=== PATIENT | male | born 1945 | race Caucasian/White ===

== ENCOUNTER 2016-08-07 10:38 | Emergency (ER) | payer MEDICARE, BC ==
[2016-08-07] MEDS ORDERED: Aspirin Low Dose CHEW TAB* 81 MG PO ONE (10:44)
--- NOTE | 2016-08-07 11:53 | RAD ---
INDICATION: Chest pain COMPARISON: September 10, 2013 TECHNIQUE: An AP portable view obtained at 1125 hours is submitted. FINDINGS: Bones/Soft Tissues: There are no acute bony findings. Cardiomediastinal: The cardiomediastinal silhouette is normal. Lungs: There are no infiltrates. Pleura: There are no pleural effusions. Other: None IMPRESSION: NO ACTIVE DISEASE.
[2016-08-07] MEDS ORDERED: Ketorolac INJ* 30 MG/ML 1 ML VIAL IV ONE (13:23)
[2016-08-07 14:07] LABS: Hematocrit 40 % (42-52); Hemoglobin 13.5 g/dl (14.0-18.0); Mean Corpuscular HGB Conc 34 g/dl (31-36); Mean Corpuscular Hemoglobin 31 pg (27-31); Mean Corpuscular Volume 91 fL (80-94); Mean Platelet Volume 8 um3 (7.4-10.4); Red Blood Count 4.35 10^6/ul (4.0-5.4); Red Cell Distribution Width 13 % (10.5-15); White Blood Count 8.3 10^3/ul (3.5-10.8)
[2016-08-07 14:19] LABS: Albumin 3.9 g/dL (3.2-5.2); BUN/Creatinine Ratio 10.6 (8-20); Calcium 8.8 mg/dL (8.6-10.3); EGFR African American 82.5 (>60); EGFR Non-African American 64.2 (>60); Potassium 3.8 mmol/L (3.5-5.0); Total Bilirubin 0.6 mg/dL (0.2-1.0); Total Protein 6.9 g/dL (6.4-8.9)
[2016-08-07 14:20] LABS: Troponin I 0.02 ng/mL (<0.04)
--- NOTE | 2016-08-07 14:50 | RAD ---
INDICATION: Chest pain. COMPARISON: Comparison is made with prior chest x-ray studies from September 10, 2013 and August 07, 2016. TECHNIQUE: A single lateral view of the chest was obtained. FINDINGS: The lungs appear clear. No pleural effusion is seen. IMPRESSION: No evidence for acute finding.
[2016-08-07] MEDS ORDERED: Iohexol 350* (CONTRAST) 500 ML MDV IV ONE (14:57)
--- NOTE | 2016-08-07 16:28 | RAD ---
INDICATION: Chest pain. COMPARISON: Correlation is made with a prior chest x-ray studies from August 07, 2016. TECHNIQUE: A CT angiogram of the chest was performed with intravenous following intravenous injection of 83 ml of Omnipaque 350 nonionic contrast. Contiguous axial sections were obtained from the lung apices through the lung bases. Images were reconstructed in the coronal and sagittal planes. FINDINGS: There is relatively homogeneous opacification of the pulmonary arteries. No intraluminal filling defect or pulmonary embolism is seen. The heart is within normal limits in size. No pericardial effusion is present. The thoracic aorta is normal in caliber. No significant enlarged mediastinal or hilar lymph nodes are seen. There is a moderate size hiatal hernia present. The patient is status post gastric bypass surgery. No acute findings are seen in the upper abdomen. There is mild dependent bilateral lower lobe subsegmental atelectasis. The lungs are otherwise clear. No pleural effusion or pneumothorax is seen. No significant focal osseous abnormality is seen. IMPRESSION: 1. NO EVIDENCE FOR PULMONARY EMBOLISM. 2. MODERATE SIZE HIATAL HERNIA.
[2016-08-07 16:57] VITALS: BP 172/82
--- NOTE | 2016-08-07 19:04 | ED ---
Efren Love Adam, scribed for Luis M Nicholson MD on 08/07/16 at 1235 . HPI Chest Pain - HPI Summary HPI Summary: Pt is a 70 year old male presenting with chest pain that set on at 02:00 this morning. He states that at 02:00 he felt a crunch in the left side of his back as he was lifting up his left arm. He says it felt similar to when he has cracked ribs in the past. After the crunching sensation, he began feeling pain around his left shoulder blade and also in the center of his chest. The quality of the pain is "like a toothache" and it has been constant since 02:00. He also c/o SOB and he states that deep breaths aggravate the pain. He denies abdominal pain. PMHx of rotator cuff work on the RUE, which is in a sling. - History of Current Complaint Chief Complaint: EDChestPainROMI Time Seen by Provider: 08/07/16 12:30 Hx Obtained From: Patient Onset/Duration: Started Hours Ago, Atraumatic, Still Present Timing: Constant, Lasting Hours Initial Severity: Moderate Current Severity: Moderate Pain Intensity: 6 Pain Scale Used: 0-10 Numeric Chest Pain Location: Mid Sternal Chest Pain Radiates: Yes Chest Pain Radiates To:: Back - Left Character: Dull/Aching Aggravating Factor(s): Deep Breaths Alleviating Factor(s): Nothing Associated Signs and Symptoms: Positive: Shortness of Breath - Allergy/Home Medications Allergies/Adverse Reactions: Allergies Allergy/AdvReac Type Severity Reaction Status Date / Time No Known Allergies Allergy Verified 07/06/16 07:20 PMH/Surg Hx/FS Hx/Imm Hx Endocrine/Hematology History: Reports: Hx Thyroid Disease - Hx OF HYPER, WAS ON MEDS, NO CURRENT MEDS Denies: Hx Diabetes - HX diabetes prior to weight loss, s/p gastric bypass 2002 Cardiovascular History: Reports: Hx Hypertension - s/p systemic arterial hypertension per Dr. Diaz 09/13/12, Other Cardiovascular Problems/Disorders - near syncope/sob since 05/2012, no HTN after weight loss Denies: Hx Angina, Hx Coronary Artery Disease, Hx Hypercholesterolemia, Hx Myocardial Infarction, Hx Pacemaker/ICD, Hx Valvular Heart Disease Respiratory History: Reports: Other Respiratory Problems/Disorders - many prior rib fx's, including some from 2 yrs ago Denies: Hx Asthma, Hx Chronic Obstructive Pulmonary Disease (COPD) GI History: Reports: Hx Gastroesophageal Reflux Disease - Hx OF, [place] SINCE LOSING WT, Hx Hiatal Hernia, Other GI Disorders - s/p gastric bypass 02/2003 History: Denies: Hx Renal Disease Musculoskeletal History: Reports: Hx Arthritis - MANY JOINTS, Hx Back Problems - broken back in 1978 Sensory History: Reports: Hx Contacts or Glasses - GLASSES Denies: Hx Hearing Aid Opthamlomology History: Reports: Hx Contacts or Glasses - GLASSES Neurological History: Reports: Hx Spinal Cord Injury - 1978 broken back, Other Neuro Impairments/Disorders - Past 6 months complaint of dizziness, tremors hands/legs (10/23/12) Psychiatric History: Reports: Other Psychiatric Issues/Disorders - inpatient ETOH treatment 07/17 Denies: Hx Panic Disorder - Cancer History Cancer Type, Location and Year: 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 BILATERAL BREAST LUMPS REMOVED Hx Anesthesia Reactions: No Infectious Disease History: No Infectious Disease History: Denies: Traveled Outside the [place] in Last 30 Days - Family History Known Family History: Positive: Cardiac Disease - CAD, triple bypass - Social History Occupation: Disabled Lives: With Family - Alcohol Use: None Hx Substance Use: No Substance Use Type: Reports: None Hx Tobacco Use: Yes Smoking Status (MU): Former Smoker Amount Used/How Often: 2-3 PPD 30 YRS Have You Smoked in the Last Year: No Review of Systems Negative: Fever Positive: Chest Pain Positive: Shortness Of Breath Positive: Myalgia - Left back pain All Other Systems Reviewed And Are Negative: Yes Physical Exam Triage Information Reviewed: Yes Vital Signs On Initial Exam: Initial Vitals Temp Pulse Resp BP Pulse Ox 98.1 F 55 18 153/78 98 08/07/16 11:09 08/07/16 11:09 08/07/16 11:09 08/07/16 11:09 08/07/16 11:09 Vital Signs Reviewed: Yes Appearance: Positive: Well-Appearing, No Pain Distress Skin: Positive: Warm, Skin Color Reflects Adequate Perfusion, Dry Head/Face: Positive: Normal Head/Face Inspection Eyes: Positive: Normal ENT: Positive: Normal ENT inspection Neck: Positive: Supple, Nontender Respiratory/Lung Sounds: Positive: Clear to Auscultation, Breath Sounds Present Cardiovascular: Positive: RRR Abdomen Description: Positive: Nontender, Soft Bowel Sounds: Positive: Present Musculoskeletal: Positive: Normal Neurological: Positive: Normal Psychiatric: Positive: Normal, Affect/Mood Appropriate Diagnostics - Vital Signs Vital Signs Temp Pulse Resp BP Pulse Ox 08/07/16 11:31 98.3 F 53 16 149/90 98 08/07/16 11:09 98.1 F 55 18 153/78 98 - Laboratory Lab Results: Lab Results 08/07/16 08/07/16 08/07/16 Range/Units 13:52 13:52 13:52 WBC 8.3 (3.5-10.8) 10^3/ul RBC 4.35 (4.0-5.4) 10^6/ul Hgb 13.5 L (14.0-18.0) g/dl Hct 40 L (42-52) % MCV 91 (80-94) fL MCH 31 (27-31) pg MCHC 34 (31-36) g/dl RDW 13 (10.5-15) % Plt Count 199 (150-450) 10^3/ul MPV 8 (7.4-10.4) um3 Neut % (Auto) 64.1 (38-83) % Lymph % (Auto) 25.4 (25-47) % Hardee % (Auto) 7.4 (1-9) % Eos % (Auto) 2.4 (0-6) % Baso % (Auto) 0.7 (0-2) % Absolute Neuts (auto) 5.3 (1.5-7.7) 10^3/ul Absolute Lymphs (auto) 2.1 (1.0-4.8) 10^3/ul Absolute Monos (auto) 0.6 (0-0.8) 10^3/ul Absolute Eos (auto) 0.2 (0-0.6) 10^3/ul Absolute Basos (auto) 0.1 (0-0.2) 10^3/ul Absolute Nucleated RBC 0 10^3/ul Nucleated RBC % 0 D-Dimer, Quantitative (Less Than 230) ng/mL Sodium 136 (133-145) mmol/L Potassium 3.8 (3.5-5.0) mmol/L Chloride 106 (101-111) mmol/L Carbon Dioxide 23 (22-32) mmol/L Anion Gap 7 (2-11) mmol/L BUN 12 (6-24) mg/dL Creatinine 1.13 (0.67-1.17) mg/dL Est GFR ( Amer) 82.5 (>60) Est GFR (Non-Af Amer) 64.2 (>60) BUN/Creatinine Ratio 10.6 (8-20) Glucose 85 (70-100) mg/dL Lactic Acid 0.8 (0.5-2.0) mmol/L Calcium 8.8 (8.6-10.3) mg/dL Total Bilirubin 0.60 (0.2-1.0) mg/dL AST 16 (13-39) U/L ALT 8 (7-52) U/L Alkaline Phosphatase 54 (34-104) U/L Troponin I 0.02 (<0.04) ng/mL B-Natriuretic Peptide ( - 100) pg/mL Total Protein 6.9 (6.4-8.9) g/dL Albumin 3.9 (3.2-5.2) g/dL Globulin 3.0 (2-4) g/dL Albumin/Globulin Ratio 1.3 (1-3) 08/07/16 08/07/16 Range/Units 13:52 13:52 WBC (3.5-10.8) 10^3/ul RBC (4.0-5.4) 10^6/ul Hgb (14.0-18.0) g/dl Hct (42-52) % MCV (80-94) fL MCH (27-31) pg MCHC (31-36) g/dl RDW (10.5-15) % Plt Count (150-450) 10^3/ul MPV (7.4-10.4) um3 Neut % (Auto) (38-83) % Lymph % (Auto) (25-47) % Hardee % (Auto) (1-9) % Eos % (Auto) (0-6) % Baso % (Auto) (0-2) % Absolute Neuts (auto) (1.5-7.7) 10^3/ul Absolute Lymphs (auto) (1.0-4.8) 10^3/ul Absolute Monos (auto) (0-0.8) 10^3/ul Absolute Eos (auto) (0-0.6) 10^3/ul Absolute Basos (auto) (0-0.2) 10^3/ul Absolute Nucleated RBC 10^3/ul Nucleated RBC % D-Dimer, Quantitative 265 H (Less Than 230) ng/mL Sodium (133-145) mmol/L Potassium (3.5-5.0) mmol/L Chloride (101-111) mmol/L Carbon Dioxide (22-32) mmol/L Anion Gap (2-11) mmol/L BUN (6-24) mg/dL Creatinine (0.67-1.17) mg/dL Est GFR ( Amer) (>60) Est GFR (Non-Af Amer) (>60) BUN/Creatinine Ratio (8-20) Glucose (70-100) mg/dL Lactic Acid (0.5-2.0) mmol/L Calcium (8.6-10.3) mg/dL Total Bilirubin (0.2-1.0) mg/dL AST (13-39) U/L ALT (7-52) U/L Alkaline Phosphatase (34-104) U/L Troponin I (<0.04) ng/mL B-Natriuretic Peptide 78 ( - 100) pg/mL Total Protein (6.4-8.9) g/dL Albumin (3.2-5.2) g/dL Globulin (2-4) g/dL Albumin/Globulin Ratio (1-3) Result Diagrams: 08/07/16 13:52 08/07/16 13:52 Lab Statement: Any lab studies that have been ordered have been reviewed, and results considered in the medical decision making process. - Radiology CXR Radiology Interpretation Completed By: Radiologist - IMPRESSION: NO ACTIVE DISEASE. - CT CHEST/THORAX CTA CT Interpretation Completed By: Radiologist - IMPRESSION: 1. NO EVIDENCE FOR PULMONARY EMBOLISM. 2. MODERATE SIZE HIATAL HERNIA. - EKG 10:44 Cardiac Rate: Bradycardia - 53 BPM EKG Rhythm: Sinus Bradycardia - Additional Comments Diagnostic Additional Comments: Troponin I - 0.02 Chest Pain Course/Dx - Course Course Of Treatment: Mr. Cooley had the acute onset of chest and back pain while rolling over in bed during the wee hours of the night last night and it has been bothering him since. It does aggravate it some to take a deep breath but he has no other exacerbating or relieving factors. His W/U was negative here for labs and CXR including troponin. A CTA was also negative for dissection or PE. I think this is a radicular pain. There is no compression fx. - Diagnoses Provider Diagnoses: Dorsal radiculopathy Discharge - Discharge Plan Condition: Stable Disposition: HOME Prescriptions: Acetaminop/Codeine 30 MG TAB* [Tylenol/Codeine 30 MG TAB*] 1 tab PO Q6H PRN #20 tab MDD 4 PRN Reason: Pain Patient Education Materials: Lumbar Radiculopathy (ED) Referrals: Patty Richard MD [Primary Care Provider] - Additional Instructions: Follow up with Dr. Richard. The documentation as recorded by the Efren guevara Adam accurately reflects the service I personally performed and the decisions made by me, Luis M Nicholson MD.
== END 2016-08-07 18:10 | disposition home or self-care (01) ==
LOC: ED 10:38
DX: M54.14 Radiculopathy, thoracic region (principal); K44.9 Diaphragmatic hernia without obstruction or gangrene; R07.9 Chest pain, unspecified; R06.02 Shortness of breath; M54.9 Dorsalgia, unspecified
CPT/HCPCS: 36415; 71010; 71275; 80053; 83605; 83880; 84484; 85025; 85379; 93005; 96374; 99282; A9270-GY; J1885; Q9967

== ENCOUNTER 2017-03-07 05:58 | Inpatient (IN) | payer MEDICARE, BC ==
--- NOTE | 2017-02-20 20:54 | HP ---
PREOPERATIVE HISTORY AND PHYSICAL: DATE OF SURGERY: 03/07/17 ATTENDING SURGEON: Sendy Ryan MD.* (DICTATED BY MENA BEAN) PROCEDURE: Right total shoulder reverse. CHIEF COMPLAINT: Right shoulder pain. HISTORY OF PRESENT ILLNESS: Mr. Cooley is a 71-year-old male who presented to the clinic with right shoulder pain due to the rotator cuff tear and osteoarthritis. He has a history of right shoulder arthroscopy with extensive glenohumeral debridement with biceps tenotomy, subacromial decompression with acromioplasty, distal clavicle excision and rotator cuff repair double row with Dr. Ryan on 07/06/16. He is having continued pain in the shoulder. He has failed conservative measures and therefore, it was agreed to undergo right total shoulder reverse with Dr. Ryan on 03/07/17. PAST MEDICAL HISTORY: Anemia, skin cancer, hypertension resolved after he had the gastric bypass, diabetes resolved after he had the gastric bypass, gastric bypass and hyperthyroidism. PAST SURGICAL HISTORY: Gastric bypass in 2013, left shoulder surgery x2, right shoulder arthroscopy, breast lumpectomy, left knee meniscectomy, skin cancer removal. Denies prior complications with anesthesia. MEDICATIONS: 1. Tramadol 50 mg 1 tab by mouth every 4 hours as needed for pain. 2. Ibuprofen 800 mg 1 every 8 hours as needed for pain, take with food. 3. Aspirin 81 mg daily. 4. Vitamin B12, 250 mcg 2 to 3 drops daily. 6. Ibuprofen 600 mg take 1 by mouth every 6 hours as needed for pain. 7. Percocet 5/325 take 1 every 4 to 6 hours as needed for pain. 8. Colace 100 mg take 1 twice a day postoperatively. ALLERGIES: No known drug allergies. FAMILY HISTORY: Positive for diabetes, heart disease, Alzheimer's, thyroid disease and Parkinson's disease. Denies family history of DVT or PE. SOCIAL HISTORY: He lives with his spouse. He is retired. He denies tobacco use. He reports occasional alcohol consumption. He denies illegal drug use. REVIEW OF SYSTEMS: General: Denies fever, chills, night sweats. No known anesthesia problems. HEENT: Negative for headache, lightheadedness, or syncopal episodes. Integumentary: Negative for abrasions, lesions or open wounds. Cardiothoracic: As needed for chest pain, palpitations or edema. Positive for hypertension. GI: Negative for nausea, vomiting, diarrhea, constipation or GERD. : Negative for nocturia, history of UTIs, or kidney problems. Musculo-skeletal System: Positive for current complaint. Neuro: Negative for numbness, tingling, history of seizure, stroke, or epilepsy. Endocrine: Positive for diabetes and hyperthyroidism. Hematology: Negative for easy bruising, history of excessive bleeding, history of DVT or PE. Infectious Disease: Negative for history of MRSA, hepatitis C, or HIV. PHYSICAL EXAMINATION GENERAL: Well-developed, well-nourished 71-year-old male in no acute distress. Alert and oriented x3. Appropriate mood and affect. VITAL SIGNS: Height 55.5, weight 215. Pulse 77, blood pressure 128/74, respiratory rate 16, temperature 96.8. BMI 35.2. HEENT: Normocephalic, atraumatic. PERRLA. Throat clear. NECK: Supple. PULMONARY: Lungs clear to auscultation bilaterally. No wheezing, rhonchi, or rales. CARDIO: Regular rate and rhythm. S1 and S2. No murmurs, gallops, or rubs. No edema. ABDOMEN: Positive bowel sounds, soft, nontender. NEURO: Alert and oriented x3. Cranial nerves grossly intact. Sensation is intact to light touch. MUSCULOSKELETAL: Right upper extremity skin is intact well healed surgical incision. Anterior joint line tenderness. Forward flexion to 100, abduction is 65, external rotation is 30, and internal rotation is to posterior hip. +4/5 strength in all rotator cuff testing with pain. +2 radial pulse. Sensation is intact to light touch distally. STUDIES: MRI of the right shoulder revealed high-grade partial thickness tearing of the supraspinatus tendon. IMPRESSION: Right shoulder rotator cuff tear and arthritis. PLAN: The patient is scheduled to undergo a right total shoulder reverse with Dr. Ryan on 03/07/17. He will return to the office in 10 to 14 days for postoperative followup and suture removal. Percocet will be used for postop pain and management. MENA BEAN [id number]/[facility] #: [id number] [facility]ER[facility] CHILDREN'S HOSPITALRubén
[~2017-03-07 05:58] MED LIST: Buffered Lidocaine 0.9% SYRIN* 5 ML/SYR SYRINGE INTRADERM ONE; Buffered Lidocaine 0.9% SYRIN* 5 ML/SYR SYRINGE ONE; Famotidine IV* 10 MG/ML 2 ML (20 mg) ONE; Morphine INJ* 2 MG/ML 1 ML SYRINGE IV PRN; PROCHLORPERAZINE INJ 5 MG/ML 2 ML VIAL IV PRN; Scopolamine 1.5 mg* PATCH TRANSDERM PRN; ceFAZolin 2 GM PREMIX (*) 50 ML IVPB ONE; fentaNYL* 50 MCG/ML 2 ML VIAL (100 MCG VIAL) IV PRN; oxyCODONE/Acetamin 5/325 MG* TAB PO PRN
[2017-03-07] MEDS ORDERED: Famotidine IV* 10 MG/ML 2 ML (20 mg) IV ONE (06:00)
[2017-03-07] MEDS ORDERED: Midazolam* 1 MG/ML 5 ML VIAL (5 MG) ONE (07:06)
[2017-03-07] MEDS ORDERED: Atracurium* 10 MG/ML 10 ML VIAL ONE (07:06)
[2017-03-07] MEDS ORDERED: KETAMINE HCL* 50 MG/ML 10 ML VIAL ONE (07:06)
[2017-03-07] MEDS ORDERED: fentaNYL* 50 MCG/ML 2 ML VIAL (100 MCG VIAL) ONE ×3 (07:06→10:49)
[2017-03-07] MEDS ORDERED: Dexamethasone IV* 4 MG/ML 1 ML (4 MG) ONE (08:11)
[2017-03-07] MEDS ORDERED: Lidocaine 2% PF * 5 ML VIAL ONE (08:11)
[2017-03-07] MEDS ORDERED: Bupivacaine 0.25% SDV* 30 ML ONE (08:11)
[2017-03-07] MEDS ORDERED: Phenylephrine INJ* 10 MG/ML 1 ML VIAL (10 MG) ONE (08:11)
[2017-03-07] MEDS ORDERED: Propofol* 10 MG/ML 20 ML BTL IV PUSH ONE (08:11)
[2017-03-07] MEDS ORDERED: PROCHLORPERAZINE INJ 5 MG/ML 2 ML VIAL ONE (08:11)
[2017-03-07] MEDS ORDERED: Ondansetron INJ* 2 MG/ML VIAL ONE (08:11)
[2017-03-07] MEDS ORDERED: EPHEDrine (Pressors)* 50 MG/ML VIAL ONE (08:55)
[2017-03-07] MEDS ORDERED: HYDROmorphone* 1 MG/ML 1 ML SYR ONE ×2 (09:30→10:49)
[2017-03-07] MEDS ORDERED: Polyethylene Glycol 3350* 17 GM PACKET PO PRN (10:32)
[2017-03-07] MEDS ORDERED: oxyCODONE TAB* 5 MG TAB PO PRN (10:32)
[2017-03-07] MEDS ORDERED: diPHENhydraMINE IV* 50 MG/ML 1 ml VIAL (BENADRYL) IV PRN (10:32)
[2017-03-07] MEDS ORDERED: Bisacodyl SUPP* 10 MG SUPP PR PRN (10:32)
[2017-03-07] MEDS ORDERED: Ondansetron INJ* 2 MG/ML VIAL IV PRN (10:32)
[2017-03-07] MEDS ORDERED: oxyCODONE/Acetamin 5/325 MG* TAB PO PRN (10:32)
[2017-03-07] MEDS ORDERED: Magnesium Hydroxide LIQ* 30 ML UDC PO PRN (10:32)
[2017-03-07] MEDS ORDERED: Acetaminophen TAB* 325 MG PO PRN (10:32)
[2017-03-07] MEDS ORDERED: Morphine INJ* 2 MG/ML 1 ML SYRINGE IV PRN (10:32)
[2017-03-07] MEDS ORDERED: Temazepam CAP* 15 MG PO PRN (10:32)
[2017-03-07] MEDS: HYDROmorphone* 1 MG/ML 1 ML SYR IV PRN ×2 (10:51→11:15)
--- NOTE | 2017-03-07 11:28 | RAD ---
INDICATION: Postop total right shoulder replacement surgery. TECHNIQUE: 4 views of the right shoulder were obtained. FINDINGS: The patient is status post total right shoulder replacement surgery with a reversed polarity prosthesis. The bones and prostheses are in normal alignment. There is a surgical drain present IMPRESSION: STATUS POST TOTAL RIGHT SHOULDER REPLACEMENT SURGERY.
--- NOTE | 2017-03-07 14:59 | OP ---
DATE OF OPERATION: 03/07/17 - ROOM #346 DATE OF : 45 SURGEON: Sendy Ryan MD ASSISTANTS: MENA Ho, and MENA Cast. ANESTHESIOLOGIST: Dr. Bowen. ANESTHESIA: General and interscalene block. PRE-OP DIAGNOSES: Right shoulder rotator cuff tear with pseudoparalysis. POST-OP DIAGNOSES: Right shoulder rotator cuff tear with pseudoparalysis. OPERATIVE PROCEDURE: Right shoulder reverse shoulder arthroplasty and removal of foreign body x2. IMPLANTS: Tornier Aequalis reverse threaded base plate at 25 x 30 mm; centered glenosphere 36 mm; size 5B Aequalis Ascend Flex stem with a size 0 mm high offset reverse tray and 9 mm ultra high molecular weight polyethylene. INDICATIONS: Zachary Cooley is a 71-year-old male who underwent a previous rotator cuff repair with subpectoral biceps tenodesis. He did okay for a while then he had subsequent multiple falls that resulted in re-tear of the rotator cuff. After discussion of revision repair versus reverse shoulder arthroplasty , due to his comorbidities and the quality of the tissue there was a concern that he would not heal the tear; therefore, we discussed options for reverse shoulder arthroplasty. The patient refused injections and elected to proceed with reverse shoulder arthroplasty. Risk and benefits were discussed at length include, but not limited to bleeding infection, damage to nerves, vessels, surrounding structures, the wound nonhealing, persistent pain, need for further surgery, scarring, stiffness, persistent pain, fracture dislocation, risk of anesthesia, hematoma, incomplete relief of symptoms, need for further surgery. He elected to proceed. DESCRIPTION OF PROCEDURE: The patient was seen and examined in the preoperative area. The correct extremity was marked and consent was confirmed. The patient then underwent interscalene nerve block by the anesthesiologist in the preoperative area after which he was brought to the operating suite where he was placed in supine position on the operating table, he is then underwent general anesthesia and endotracheal intubation after which the patient was appropriately positioned in the lazy beach chair position. All bony prominences were padded. The right shoulder was then prepped and draped in the usual sterile fashion with chlorhexidine soap scrub and alcohol wipe and final prep with ChloraPrep. After an appropriate surgical pause indicating side, site, and procedure, administration of antibiotics, the deltopectoral incision was made sharply with a #15 blade. The soft tissues were carefully dissected. Hemostasis was obtained at all times using electrocautery device. The soft tissue was carefully dissected to expose cephalic vein, which was identified then retracted laterally with the deltoid, the pectoralis tendon was retracted medially. The soft tissue retractors were used to expose the anterior aspect of the shoulder. The bursa was removed, the conjoined tendon was identified and laterally the subscapular bursa was removed. The biceps was identified. The proximal 1 cm of the pec was released. He had already previously been tenodesed, so we did not need to do this again. The soft tissues were carried up all the way into the joint to expose the superior and inferior borders of the subscap. Subscap was then released in the subscap peel type fashion with gentle external rotation. Subscap was then tagged with the # 5 Ethibond suture for retraction. The visualized tear of the rotator tear cuff was then identified proximally; he did have tearing as well inferiorly. The sutures were identified. Part of the rotator cuff was also released. The head was then exposed and delivered through the wound with retractors appropriately placed. A sagittal saw was used to make a freehand cut. The starting awl was then used to find the center of the canal. The canal was then sized to about 5.6. At this point, the broaching began with the pedrito set to 20 degrees of retroversion. A size 5 broach was found to have an excellent fit with good metaphyseal fit. The excess bone was reamed, coplanar was used to remove any excess bone. The head protector was then placed into the shaft. The shoulder was then delivered back into the wound and the attention was directed to the glenoid. The Fukuda and then posterior retractor were used to expose the posterior aspect of the glenoid. Hohmann was placed proximally and the subscap adhesions ; the superior, middle, and inferior glenohumeral ligaments were then carefully released with care to protect the neurovascular bundle. The glenoid neck retractor was then used to expose the anterior aspect of the glenoid and the labrum was removed using electrocautery device, from the 12 o'clock to the 5 o' clock position. The inferior aspect of the labrum was then removed using a needle tip Bovie from 5 o'clock to 7 o'clock with care to retract sutures and to stay on bone to prevent any damage to the neurovascular structures. Once a full release to the labrum was done, the Mcdowell elevator was used to remove the excess cartilage from the glenoid. The guide pin was then used for a size 25 base plate and placed approximately 10 mm from the inferior border of the glenoid. This was then placed bicortically and used as a guide to help reaming of the glenoid, to remove all excess cartilage, and expose good bleeding bone. The 8 mm drill bit was then drilled to drill the center peg and then a 6.5 mm drill was used to drill the position for the threaded base plate. This was measured to be about 30 mm. The screw hole was then tapped in the appropriate baseplate. The final implant was then brought to the table and then secured with excellent purchase. 4 interlocking screws were placed, these were locking screws with excellent purchase. The wound was irrigated then the glenosphere was brought into the field. The glenosphere was then reduced and the set screw was secured and the attention was then directed to the humeral stem. The stem was checked to make sure that it had not loosened and it was gently impacted back to position. After various trials it was found that the high offset base plate with size 9 mm poly had the best fit with a good amount of shuck, reapproximation of the subscap as well as good range of motion; forward flexion to about 150 degrees, posterior extension to about 40 degrees, external rotation to about 35 degrees, abduction to 90 degrees. At this point, the final implants were obtained, were brought to the field. The trial humeral stem was removed. Three drill holes were replaced unicortically through the humerus with #5 Ethibond to reapproximate subscap repair. The final implant was assembled on the back table by the attending surgeon. This was then impacted en isabella into the shoulder with good purchase. The shoulder was then reduced and found to have symmetric range of motion. At this point, the wound was copiously irrigated with sterile saline. The subscap was then reapproximated using the previously placed #5 Ethibond sutures; it was passed in horizontal mattress configuration and tied down. The wound was irrigated again. A drain was then placed at this time. The wound was irrigated again. The deltopectoral interval was closed with #2 Ti-Cron sutures. The wound was closed in layers with 2-0 Vicryl and 3-0 Monocryl. Sterile dressings were applied. A Cryo/Cuff UltraSling and dressings were applied. He was awoken from anesthesia and transferred to PACU in stable condition. POSTOPERATIVE PLAN: He will be nonweightbearing. He will have no active range of motion, passive forward flexion, abduction to 90 degrees, external rotation to about 30 degrees as tolerated. He will be allowed active range of motion of his elbow, wrist and hand. The drain will likely come out postop day #1. He will be admitted for 24 hours of antibiotics, pain control. We will check his blood count in the morning. He will be on DVT prophylaxis while in house, would likely go home without any due to no personal or family history. Postop x -rays will be checked in the PACU. We will follow the patient in-house and he will follow up with me in the 10 to 14 days. [id number]/[facility] #: [id number] ERNESTO
[2017-03-07] MEDS: ceFAZolin 1 GM VIAL(*) 1 GM in NS 0.9% 50 ML* 50 ML IVPB SCH ×2 (15:14→23:17)
[2017-03-07] MEDS: oxyCODONE/Acetamin 5/325 MG* TAB PO PRN (19:36)
[2017-03-08] MEDS: oxyCODONE/Acetamin 5/325 MG* TAB PO PRN ×3 (00:04→10:49)
[2017-03-08 05:08] LABS: Hematocrit 32 % (42-52); Hemoglobin 11.1 g/dl (14.0-18.0)
[2017-03-08 05:21] LABS: BUN/Creatinine Ratio 11.5 (8-20); Calcium 8.2 mg/dL (8.6-10.3); EGFR African American 99.3 (>60); EGFR Non-African American 77.2 (>60); Potassium 3.6 mmol/L (3.5-5.0)
[2017-03-08] MEDS: ceFAZolin 1 GM VIAL(*) 1 GM in NS 0.9% 50 ML* 50 ML IVPB SCH (07:14)
[2017-03-08] MEDS ORDERED: Enoxaparin(*) 40 MG/0.4 ML SYR SUBCUT SCH (08:00)
[2017-03-08] MEDS ORDERED: Cyanocobalamin INJ * 1,000 MCG/ML VIAL 1 ML VIAL IM ONE (10:51)
--- NOTE | 2017-03-08 10:51 | PN ---
Progress Note - Progress Note Date of Service: 03/08/17 SOAP: Subjective: []Patient seen OOB in chair, doing faily well, pain well managed. Hopes to go home this afternoon after lunch. Objective: [] Vital Signs Temp 97.4 F 03/08/17 07:23 Pulse 60 03/08/17 07:23 Resp 16 03/08/17 08:00 BP 126/72 03/08/17 07:23 Pulse Ox 95 03/08/17 09:00 Intake & Output 03/07/17 03/08/17 03/08/17 18:59 06:59 18:59 Intake Total 3050 1959 75 Output Total 775 1675 300 Balance 2275 284 -225 Intake: IV Fluids 2049 924 20 LR 1999 924 20 NS 50ML, Cefazolin 2G 50 IVPB 55 55 ABX 55 55 Oral 1000 980 Output: Hemovac Amount #1 225 200 Urine 550 1475 300 Other: Estimated Void Medium # Voids 1 Laboratory Results - last 24 hr 03/08/17 03/08/17 04:40 04:40 Hgb 11.1 L Hct 32 L Sodium 138 Potassium 3.6 Chloride 108 Carbon Dioxide 25 Anion Gap 5 BUN 11 Creatinine 0.96 Est GFR ( Amer) 99.3 Est GFR (Non-Af Amer) 77.2 BUN/Creatinine Ratio 11.5 Glucose 103 H Calcium 8.2 L Right shoulder ABDs and 4x4's removed in order to removed hemovac drain, no complications, tip intact no active drainage mild edema and diffuse ecchymosis moving all digits well with full senation distally 2+ radial pulse new 4x4s and tegaderm applied Assessment: []s/p Right reverse total shoulder arthroplasty POD #1 Plan: []Sling RUE B12 shot before discharge Home after lunch today follow up in 7- 10 days as scheduled with Dr. Ryna
[2017-03-08 12:01] VITALS: BP 117/66
--- NOTE | 2017-03-08 15:09 | DS ---
DISCHARGE SUMMARY: DATE OF ADMISSION: 03/07/17. DATE OF DISCHARGE: 03/08/17. ATTENDING PHYSICIAN: Dr. Ryan * (DICTATED BY MENA DARLING) ADMISSION DIAGNOSIS: Right shoulder rotator cuff tear with pseudoparalysis. DISCHARGE DIAGNOSIS: Right shoulder rotator cuff tear with pseudoparalysis. SURGERY PERFORMED: Right shoulder reverse arthroplasty and removal of foreign body x2. HOSPITAL COURSE: The patient is a 71-year-old male who previously underwent rotator cuff repair with subpectoral biceps tendinosis. The patient initially did well, but then had subsequent falls that resulted in a re-tear of the rotator cuff. Options of revision rotator cuff repair versus shoulder arthroplasty were discussed. Due to the fact he would have potential of slow or nonhealing rotator cuff, he elected to proceed with reverse shoulder arthroplasty. He was taken to the operating room under the care of Dr. Ryan on the date of 03/07/17. He tolerated the procedure well and left the operating room in stable condition. Postoperatively, he progressed well. He was able to get out of bed to his chair without difficulties and felt that his pain was under excellent management. He stated that he would like to be discharged to home on the afternoon of 03/08/17. CONDITION ON DISCHARGE: The patient's vitals signs are stable. He is afebrile. His neurovascular status is intact in the right upper extremity, moving all digits freely. He has a 2+ radial pulse. He has full sensation distally. His Hemovac drain was removed without difficulty. There is no active drainage from his incision. He has some mild ecchymosis and diffuse shoulder swelling as would be expected. New 4x4s and Tegaderm applied to his incision. PLAN: Discharge to home. He will continue the shoulder mobilizer for protected activity when up and ambulatory. He will be nonweightbearing on the right upper extremity. He will avoid active range of motion, but may do passive forward flexion and abduction to 90 degrees, external rotation to 30 degrees. He is encouraged to move his elbow, wrist, and hand daily. He will follow up with Dr. Ryan in roughly 10 to 14 days in the office. He is instructed to call the office if he has increased pain, swelling, incisional drainage, redness, fever or chills. MENA DARLING [id number]/[facility] #: [id number] ERNESTO
[2017-03-10] MEDS ORDERED: Scopolomine PATCH Remove* 1 NOTE MISC PATCH OFF ONE (05:46)
== END 2017-03-08 13:45 | disposition home or self-care (01) | DRG 483 ==
LOC: AA 05:58 → SSU 12:27
PROVIDERS: ADMIT Orthopaedic Surgery; ATTEND Orthopaedic Surgery
PROC: 0RRJ00Z Replacement of Right Shoulder Joint with Reverse Ball and Socket Synthetic Substitute, Open Approach (ICD-10-PCS; principal; 2017-03-07 07:30)
DX: M19.011 Primary osteoarthritis, right shoulder (principal); E05.90 Thyrotoxicosis, unspecified without thyrotoxic crisis or storm; R29.818 Other symptoms and signs involving the nervous system; M75.101 Unspecified rotator cuff tear or rupture of right shoulder, not specified as traumatic; Z85.828 Personal history of other malignant neoplasm of skin; Z98.84 Bariatric surgery status; Z83.3 Family history of diabetes mellitus; Z82.49 Family history of ischemic heart disease and other diseases of the circulatory system; Z82.0 Family history of epilepsy and other diseases of the nervous system
CPT/HCPCS: 36415; 80048; 85014; 85018; 86850; 86900; 86901; 87070; 87205; 94760; A9270-GY; J0690; J0780; J1100; J1170; J1650; J2250; J2405; J2704; J3010; J3420

== ENCOUNTER 2019-08-01 07:52 | Day surgery (SDC) | payer MEDICARE, BC ==
--- NOTE | 2019-07-28 18:42 | HP ---
PREOPERATIVE HISTORY AND PHYSICAL: DATE OF ADMISSION/SURGERY: 08/01/19 [facility] DATE OF OFFICE VISIT/ENCOUNTER: 07/21/19 ATTENDING SURGEON: Mercedes Moore MD * (DICTATED BY MENA GASPAR) PROCEDURE: Carpometacarpal arthroplasty, left thumb; Dupuytren's excision, left thumb. HISTORY OF PRESENT ILLNESS: This is a 73-year-old male, who complains of pain at the base of his left thumb, ongoing for several months. It is progressively worsening. 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 He has failed conservative treatment including oral antiinflammatories and bracing. He is now interested in pursuing surgical intervention for the arthritis. He is also complaining of a cord in the palm of his hand in line with his thumb. This has been present for some time and has become quite bothersome. He has been diagnosed with a Dupuytren's cord and would like that excised surgically as well. PAST MEDICAL HISTORY: 1. 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 He is followed in [place] for this. 2. Essential tremor. PAST SURGICAL HISTORY: 1. Right total shoulder arthroplasty. 2. Gastric bypass in 2002. 3. Bilateral breast lumpectomy. 4. Left knee arthroscopy. 5. Vasectomy. 6. Left shoulder arthroscopy x2. CURRENT MEDICATIONS: 1. Propranolol HCL 10 mg. 2. Vitamin D injections once monthly. ALLERGIES: No known drug allergies. FAMILY MEDICAL HISTORY: Diabetes, heart disease. SOCIAL HISTORY: The patient is retired. He is a former smoker. He quit in 1995, prior to that he smoked 1 to 2 packs per day for 30 years. He denies recreational drug use. He drinks alcohol on rare occasion. REVIEW OF SYSTEMS: Positive for back pain. Otherwise, negative for general, cephalic, cardiovascular, respiratory, GI, , other musculoskeletal, integumentary, endocrine, neurologic, and hematologic symptoms. Infectious Disease: Negative for MRSA, hepatitis C, HIV. PHYSICAL EXAMINATION GENERAL: A well-developed, well-nourished 73-year-old male, in no acute distress. VITAL SIGNS: Height 5 feet 6 inches, weight 238 pounds. Pulse rate 73, blood pressure 112/78. HEENT: Normocephalic, atraumatic. Pupils are equal, round, and reactive to light and accommodation. Throat is clear. NECK: Supple. No palpable lymph nodes. PULMONARY: Lungs are clear to auscultation bilaterally. No wheezes, rales or rhonchi. CARDIOVASCULAR: Regular rate and rhythm. S1, S2. No murmurs, rubs or gallops. No edema. ABDOMEN: Positive bowel sounds. Soft, nontender. NEUROLOGICAL: Alert and oriented x3. Cranial nerves II through XII are intact. Sensation is intact to light touch. MUSCULOSKELETAL: On exam of his left hand, he has pain with palpation at the base of the thumb and also pain with range of motion particularly abduction. He has full opposition with some pain. Negative grind test. He can make a full fist. Skin is intact. Neurovascular function is intact. On inspection of the palmar aspect, there is a visible and palpable cord in the palm of his hand in line with his thumb. DIAGNOSTIC STUDIES/LAB DATA: Imaging Studies: AP, lateral, and oblique of the left thumb show significant degenerative changes at the carpometacarpal joint. IMPRESSION: Left thumb carpometacarpal joint arthritis and left hand Dupuytren' s cord in line with the thumb. PLAN/RECOMMENDATIONS: The patient is scheduled to undergo a carpometacarpal joint arthroplasty of the left thumb and Dupuytren's excision from the left thumb with Dr. Moore on 08/01/19. He will return to the office 10 days postop for followup and suture removal. A prescription for Proctor was e-scribed to the patient's pharmacy for postoperative pain management. MENA GASPAR [id number]/[facility] #: [id number] MTDRubén
[~2019-08-01 07:52] MED LIST changes: -Buffered Lidocaine 0.9% SYRIN* 5 ML/SYR SYRINGE INTRADERM ONE; -Buffered Lidocaine 0.9% SYRIN* 5 ML/SYR SYRINGE ONE; +Buffered Lidocaine 1% SYRIN* 1 ML/SYRINGE INTRADERM ONE; -Famotidine IV* 10 MG/ML 2 ML (20 mg) ONE; +Lactated Ringers 1000 ML Bag* 1,000 ML IV SCH; -Morphine INJ* 2 MG/ML 1 ML SYRINGE IV PRN; -PROCHLORPERAZINE INJ 5 MG/ML 2 ML VIAL IV PRN; -Scopolamine 1.5 mg* PATCH TRANSDERM PRN; -ceFAZolin 2 GM PREMIX (*) 50 ML IVPB ONE; -fentaNYL* 50 MCG/ML 2 ML VIAL (100 MCG VIAL) IV PRN; -oxyCODONE/Acetamin 5/325 MG* TAB PO PRN
[2019-08-01] MEDS ORDERED: ceFAZolin 2 GM PREMIX in ORs 2 GM/50 ML BAG ONE (08:34)
[2019-08-01] MEDS ORDERED: Midazolam* 1 MG/ML 2 ML VIAL (2 MG) ONE ×2 (09:17→10:17)
[2019-08-01] MEDS ORDERED: Lidocaine 2% PF * 5 ML VIAL ONE (09:18)
[2019-08-01] MEDS ORDERED: Propofol* 10 MG/ML 20 ML BTL ONE ×2 (09:18→10:35)
[2019-08-01] MEDS ORDERED: Lidocaine 2% w/ EPI 1:200,000* 20 ML SDV VIAL ONE (09:36)
[2019-08-01] MEDS ORDERED: Ketorolac INJ* 30 MG/ML 1 ML VIAL IV PRN (10:22)
[2019-08-01] MEDS ORDERED: Naloxone* 0.4 MG/ML 1 ML VIAL IV PRN (10:22)
[2019-08-01] MEDS ORDERED: fentaNYL* 50 MCG/ML 2 ML VIAL (100 MCG VIAL) IV PRN (10:22)
[2019-08-01] MEDS ORDERED: Acetaminophen TAB* 325 MG PO PRN (10:22)
[2019-08-01] MEDS ORDERED: Ondansetron INJ* 2 MG/ML VIAL IV PRN (10:22)
[2019-08-01] MEDS ORDERED: oxyCODONE TAB* 5 MG TAB PO PRN (10:22)
[2019-08-01 11:36] VITALS: BP 113/69
--- NOTE | 2019-08-01 21:43 | OP ---
DATE OF OPERATION: 08/01/19 [facility] DATE OF : 45 SURGEON: Mercedes Moore MD DEDICATED REGIONAL DRIVER: MENA Porras ANESTHESIA: Block. PRE-OP DIAGNOSIS: Left thumb carpometacarpal joint arthritis and left thumb Dupuytren's cord. POST-OP DIAGNOSIS: Left thumb carpometacarpal joint arthritis and left thumb Dupuytren's cord. OPERATIVE PROCEDURE: Dupuytren's excision and CMC arthroplasty of the left thumb. ESTIMATED BLOOD LOSS: 0. TOURNIQUET TIME: 45 minutes. INDICATIONS FOR PROCEDURE: Zachary is a 73-year-old male who has pain at the base of his left thumb and a very thin Dupuytren's cord in the palm of his hand and up into his thumb. He presents for excision of the Dupuytren's cord and CMC arthroplasty. DESCRIPTION OF PROCEDURE: The patient was brought to the operating room, was given a block anesthetic and placed in the supine position on the operating table with a tourniquet around his left forearm. The skin of his left upper extremity was prepped and draped in the usual sterile fashion. The upper extremity was exsanguinated and the tourniquet elevated to 250 mmHg. A chevron incision was made over the palpable cord in the base of the thumb and the skin flap was elevated. There was a very thin Dupuytren's cord and this was excised in its entirety and sent for pathology. The wound was irrigated and the skin edges were reapproximated with 4-0 nylon suture. Next, an S-shaped incision was made on the dorsal aspect of the thumb CMC joint. We dissected bluntly through the subcutaneous tissue. The APL and EPB tendons were retracted radially. The radial artery was carefully dissected off of the CMC joint capsule and retracted by the surgical sales representative, Imani Handley. A distally based U-shaped flap was created at the thumb CMC joint capsule and was subperiosteally dissected off of the trapezium. The trapezium was then removed in its entirety along with numerous large osteophytes. The wound was copiously irrigated with saline. The CMC joint capsule was secured to the FCR tendon with 4-0 nylon suture and then the remainder of the joint capsule was closed in interrupted fashion with 4-0 nylon suture. The skin edges were reapproximated with 4-0 nylon suture and the wound was dressed with Xeroform, 4x4, Webril, and a thumb spica splint. The patient tolerated the procedure well and was brought to the recovery room in good condition. [id number]/[facility] #: [id number] MTDD
== END 2019-08-01 12:05 | disposition home or self-care (01) ==
LOC: OREAST 07:52
PROVIDERS: ATTEND Orthopaedic Surgery
DX: M18.12 Unilateral primary osteoarthritis of first carpometacarpal joint, left hand (principal); M72.0 Palmar fascial fibromatosis [Dupuytren]; G89.18 Other acute postprocedural pain; Z87.891 Personal history of nicotine dependence; G25.0 Essential tremor; Z98.84 Bariatric surgery status
CPT/HCPCS: 88304; 88311; J0690; J2250; J2704

== ENCOUNTER 2022-05-15 17:39 | Inpatient (IN) ==
[2022-05-15 18:27] LABS: ABS Basophils 0.1 10^3/ul (0-0.2); ABS Eosinophils 0.1 10^3/ul (0-0.6); ABS Lymphocytes 1.1 10^3/ul (1.0-4.8); ABS Monocytes 1.3 10^3/ul (0-0.8); ABS Neutrophils 6.1 10^3/ul (1.5-7.7); Eosinophil % 0.9 %; Hematocrit 47 % (42-52); Hemoglobin 15.9 g/dL (14.0-18.0); Mean Corpuscular HGB Conc 34 g/dL (31-36); Mean Corpuscular Hemoglobin 33 pg (27-31); Mean Corpuscular Volume 97 fL (80-94); Mean Platelet Volume 7.5 fL (7.4-10.4); Platelet Count 170 10^3/uL (150-450); Red Blood Count 4.84 10^6 /uL (4.18-5.48); Red Cell Distribution Width 14 % (10-15); White Blood Count 8.7 10^3/uL (3.5-10.8)
[2022-05-15 19:14] LABS: Albumin 3.9 g/dL (3.2-5.2); Albumin/Globulin Ratio 1.2 (1-3); Calcium 8.9 mg/dL (8.6-10.3); Globulin 3.2 g/dL (2-4); Total Bilirubin 0.7 mg/dL (0.2-1.0); Total Protein 7.1 g/dL (6.4-8.9); eGFR CKD-EPI 58.6 (>60)
[2022-05-15 19:16] LABS: Potassium 4.6 mmol/L (3.5-5.0)
[2022-05-15 19:47] LABS: High Sensitivity Troponin 1 Hr 18 pg/mL (<20)
[2022-05-15] MEDS ORDERED: Iodixanol (CONTRAST) 320 MG/ML 100 ML SDV IV ONE (19:53)
[2022-05-15 20:19] LABS: Activated Partial Thrombo Time 31.8 seconds (26.0-38.0); INR 1.05 (0.89-1.11)
[2022-05-15] MEDS: Heparin DRIP 25,000 UNITS BAG 25,000 UNITS/500 ML BAG IV SCH (21:51)
[2022-05-15] MEDS ORDERED: Heparin 5000 UNITS/ML 1 mL VIAL IV SCH (22:00)
[2022-05-15] MEDS: Multivitamins/Minerals TAB PO SCH (22:17)
[2022-05-16 04:14] LABS: ABS Basophils 0.1 10^3/ul (0-0.2); ABS Eosinophils 0.1 10^3/ul (0-0.6); ABS Lymphocytes 1.5 10^3/ul (1.0-4.8); ABS Monocytes 1.2 10^3/ul (0-0.8); ABS Neutrophils 4.7 10^3/ul (1.5-7.7); Eosinophil % 1.5 %; Hematocrit 41 % (42-52); Hemoglobin 13.8 g/dL (14.0-18.0); Lymphocyte % 19.4 %; Mean Corpuscular HGB Conc 33 g/dL (31-36); Mean Corpuscular Hemoglobin 32 pg (27-31); Mean Corpuscular Volume 96 fL (80-94); Mean Platelet Volume 7.5 fL (7.4-10.4); Platelet Count 158 10^3/uL (150-450); Red Blood Count 4.29 10^6 /uL (4.18-5.48); Red Cell Distribution Width 14 % (10-15); White Blood Count 7.6 10^3/uL (3.5-10.8)
[2022-05-16 05:08] LABS: Calcium 8.1 mg/dL (8.6-10.3); Potassium 3.9 mmol/L (3.5-5.0)
[2022-05-16 05:13] LABS: Phosphorus 3.3 mg/dL (2.5-5.0); eGFR CKD-EPI 74.4 (>60)
[2022-05-16] MEDS ORDERED: Potassium Chlor 20 meq TAB.ER PO ONE (05:37)
[2022-05-16] MEDS ORDERED: Perflutren Lipid Microsphere 3 ML VIAL ONE (07:53)
[2022-05-16] MEDS ORDERED: Lidocaine 1% MPF 5 ML VIAL ONE (08:41)
[2022-05-16] MEDS ORDERED: Heparin 2 UNITS/ML IVPREMIX 3,000 UNIT/1,500 ML BAG IV ONE (08:41)
[2022-05-16] MEDS ORDERED: Iohexol 350 (CONTRAST) 100 ML PAK IV ONE ×2 (08:41→11:17)
[2022-05-16] MEDS ORDERED: Midazolam 5 mg/5 ml VIAL 1 mg/ml 5 ml VIAL (5 mg) ONE (09:08)
[2022-05-16] MEDS ORDERED: fentaNYL 100 mcg/2 ml 50 MCG/ML VIAL ONE ×2 (09:08→11:06)
[2022-05-16] MEDS ORDERED: Heparin 1,000 UNIT/ML 10 ml (10,000 UNITS) CATHLAB/DIALYSIS ONE (09:08)
[2022-05-16] MEDS ORDERED: nitroGLYCERIN DRIP 0 MCG/0 ML BTL ONE (09:08)
[2022-05-16] MEDS ORDERED: Heparin 2 UNITS/ML IVPREMIX 1,000 UNIT/500 ML BAG IV ONE (11:17)
[2022-05-16] MEDS ORDERED: Atropine 0.1 MG/ML 10 ml SYR (1 mg) ONE (12:14)
[2022-05-16] MEDS: Multivitamins/Minerals TAB PO SCH (13:28)
[2022-05-16] MEDS: Heparin DRIP 25,000 UNITS BAG 25,000 UNITS/500 ML BAG IV SCH (16:09)
[2022-05-17 06:12] LABS: ABS Eosinophils 0.2 10^3/ul (0-0.6); ABS Lymphocytes 1.8 10^3/ul (1.0-4.8); ABS Monocytes 1.1 10^3/ul (0-0.8); ABS Neutrophils 5.1 10^3/ul (1.5-7.7); Eosinophil % 2.8 %; Hematocrit 36 % (42-52); Lymphocyte % 22.1 %; Mean Corpuscular HGB Conc 33 g/dL (31-36); Mean Corpuscular Hemoglobin 33 pg (27-31); Mean Corpuscular Volume 97 fL (80-94); Mean Platelet Volume 7.4 fL (7.4-10.4); Platelet Count 157 10^3/uL (150-450); Red Cell Distribution Width 14 % (10-15); White Blood Count 8.3 10^3/uL (3.5-10.8)
[2022-05-17 06:47] LABS: Calcium 7.9 mg/dL (8.6-10.3); Magnesium 1.8 mg/dL (1.9-2.7); Potassium 4.2 mmol/L (3.5-5.0); eGFR CKD-EPI 72.7 (>60)
[2022-05-17] MEDS ORDERED: Magnesium Sulfate 2 gm BAG 2 GM/50 ML BAG IVPB ONE (07:20)
[2022-05-17] MEDS: Multivitamins/Minerals TAB PO SCH (07:55)
[2022-05-17] MEDS: Heparin DRIP 25,000 UNITS BAG 25,000 UNITS/500 ML BAG IV SCH (12:57)
[2022-05-18 05:55] LABS: ABS Eosinophils 0.2 10^3/ul (0-0.6); ABS Lymphocytes 1.2 10^3/ul (1.0-4.8); ABS Monocytes 0.8 10^3/ul (0-0.8); Eosinophil % 2.6 %; Hematocrit 35 % (42-52); Hemoglobin 11.9 g/dL (14.0-18.0); Lymphocyte % 16.9 %; Mean Corpuscular HGB Conc 34 g/dL (31-36); Mean Corpuscular Hemoglobin 33 pg (27-31); Mean Corpuscular Volume 97 fL (80-94); Mean Platelet Volume 7.5 fL (7.4-10.4); Platelet Count 161 10^3/uL (150-450); Red Blood Count 3.62 10^6 /uL (4.18-5.48); Red Cell Distribution Width 14 % (10-15); White Blood Count 7.3 10^3/uL (3.5-10.8)
[2022-05-18 06:34] LABS: Calcium 8.1 mg/dL (8.6-10.3); Magnesium 2.1 mg/dL (1.9-2.7)
[2022-05-18] MEDS: Multivitamins/Minerals TAB PO SCH (09:27)
[2022-05-18] MEDS: Heparin DRIP 25,000 UNITS BAG 25,000 UNITS/500 ML BAG IV SCH (09:31)
[2022-05-19 04:56] LABS: ABS Basophils 0.1 10^3/ul (0-0.2); ABS Eosinophils 0.2 10^3/ul (0-0.6); ABS Lymphocytes 1.5 10^3/ul (1.0-4.8); ABS Monocytes 0.8 10^3/ul (0-0.8); ABS Neutrophils 3.7 10^3/ul (1.5-7.7); Eosinophil % 3.2 %; Hematocrit 35 % (42-52); Lymphocyte % 23.9 %; Mean Corpuscular HGB Conc 34 g/dL (31-36); Mean Corpuscular Hemoglobin 33 pg (27-31); Mean Corpuscular Volume 97 fL (80-94); Platelet Count 177 10^3/uL (150-450); Red Blood Count 3.64 10^6 /uL (4.18-5.48); Red Cell Distribution Width 14 % (10-15); White Blood Count 6.3 10^3/uL (3.5-10.8)
[2022-05-19 05:34] LABS: Calcium 7.5 mg/dL (8.6-10.3); Magnesium 1.8 mg/dL (1.9-2.7); Potassium 3.5 mmol/L (3.5-5.0); eGFR CKD-EPI 87.3 (>60)
[2022-05-19] MEDS ORDERED: Magnesium Sulfate IV 1GM/100ML 1 GM/100 ML BAG IV ONE (05:43)
[2022-05-19] MEDS ORDERED: Potassium Chloride LIQUID 20 MEQ/15 ML LIQUID PO ONE (05:43)
[2022-05-19] MEDS: Heparin DRIP 25,000 UNITS BAG 25,000 UNITS/500 ML BAG IV SCH (07:53)
[2022-05-19] MEDS ORDERED: Magnesium Sulfate 2 gm BAG 2 GM/50 ML BAG IVPB ONE (07:54)
[2022-05-19] MEDS: Multivitamins/Minerals TAB PO SCH (08:06)
[2022-05-19] MEDS ORDERED: Lactated Ringers 1000 ml BAG 1,000 ML IV SCH (10:00)
[2022-05-19] MEDS ORDERED: Midazolam 5 mg/5 ml VIAL 1 mg/ml 5 ml VIAL (5 mg) ONE (13:33)
[2022-05-19] MEDS ORDERED: Lidocaine 1% MPF 5 ML VIAL ONE ×2 (13:33→13:34)
[2022-05-19] MEDS ORDERED: fentaNYL 100 mcg/2 ml 50 MCG/ML VIAL ONE ×2 (13:33→14:56)
[2022-05-19] MEDS ORDERED: Iohexol 350 (CONTRAST) 100 ML PAK IV ONE ×2 (13:34→15:07)
[2022-05-19] MEDS ORDERED: Heparin 2 UNITS/ML IVPREMIX 3,000 UNIT/1,500 ML BAG IV ONE (13:34)
[2022-05-19] MEDS ORDERED: Heparin 1,000 UNIT/ML 10 ml (10,000 UNITS) CATHLAB/DIALYSIS ONE (13:39)
[2022-05-19] MEDS ORDERED: Heparin 2 UNITS/ML IVPREMIX 1,000 UNIT/500 ML BAG IV ONE (14:39)
[2022-05-19] MEDS ORDERED: Iodixanol 320 (CONTRAST) 100 ML SDV ONE (15:08)
[2022-05-19] MEDS ORDERED: Iodixanol (CONTRAST) 320 MG/ML 100 ML SDV IV ONE (18:36)
[2022-05-20 05:19] LABS: ABS Eosinophils 0.2 10^3/ul (0-0.6); ABS Lymphocytes 1.3 10^3/ul (1.0-4.8); ABS Monocytes 0.8 10^3/ul (0-0.8); ABS Neutrophils 4.7 10^3/ul (1.5-7.7); Eosinophil % 2.7 %; Hematocrit 34 % (42-52); Hemoglobin 11.4 g/dL (14.0-18.0); Lymphocyte % 18.4 %; Mean Corpuscular HGB Conc 34 g/dL (31-36); Mean Corpuscular Hemoglobin 33 pg (27-31); Mean Corpuscular Volume 97 fL (80-94); Mean Platelet Volume 7.2 fL (7.4-10.4); Platelet Count 181 10^3/uL (150-450); Red Blood Count 3.45 10^6 /uL (4.18-5.48); Red Cell Distribution Width 14 % (10-15)
[2022-05-20 06:02] LABS: Potassium 4.1 mmol/L (3.5-5.0); eGFR CKD-EPI 78.9 (>60)
[2022-05-20] MEDS: Heparin DRIP 25,000 UNITS BAG 25,000 UNITS/500 ML BAG IV SCH (07:13)
[2022-05-20] MEDS: Multivitamins/Minerals TAB PO SCH (08:34)
[2022-05-20 10:05] VITALS: BP 104/69
== END 2022-05-20 12:20 | disposition home or self-care (01) | DRG 164 ==
LOC: ED 17:39 → EDHOLD 21:48 → ICU 22:43
PROVIDERS: ADMIT Surgery Surgical Critical Care; ATTEND Surgery Surgical Critical Care

== ENCOUNTER 2022-12-05 09:00 | Observation (INO) ==
[~2022-12-05 09:00] MED LIST changes: +Buffered Lidocaine 1% SYRIN 1 ml INTRADERM ONE; -Buffered Lidocaine 1% SYRIN* 1 ML/SYRINGE INTRADERM ONE; +Dexamethasone IV 4 MG/ML VIAL 1 ml VIAL IV SLOW PU ONE; +Famotidine IV 10 MG/ML 2 ml VIAL (20 mg) IV ONE; -Lactated Ringers 1000 ML Bag* 1,000 ML IV SCH; +Lactated Ringers 1000 ml BAG 1,000 ML IV SCH; +Tranexamic Acid 1,000 MG/10 ML 1,000 MG in NS 0.9% 50 ML 50 ML IV SCH
[2022-12-05] MEDS ORDERED: Dexamethasone IV 4 MG/ML VIAL 1 ml VIAL ONE (10:37)
[2022-12-05] MEDS ORDERED: ceFAZolin 2 GM in NS PREMIX 2 GM/100 ML BAG IVPB ONE (10:38)
[2022-12-05] MEDS ORDERED: Famotidine IV 10 MG/ML 2 ml VIAL (20 mg) ONE (10:38)
[2022-12-05 10:52] LABS: INR 1.14 (0.88-1.18)
[2022-12-05] MEDS ORDERED: Propofol 10 MG/ML 20 ML BTL ONE ×2 (10:55→14:32)
[2022-12-05] MEDS ORDERED: Lidocaine 2% PF 5 ML VIAL ONE (10:55)
[2022-12-05 11:01] LABS: Rapid COVID-19 Molecular Undetected (Undetected)
[2022-12-05] MEDS ORDERED: Midazolam 2 mg/2 ml VIAL 1 mg/ml 2 ml VIAL (2 mg) ONE (12:05)
[2022-12-05] MEDS ORDERED: fentaNYL 100 mcg/2 ml 50 MCG/ML VIAL ONE ×3 (12:05→16:09)
[2022-12-05] MEDS ORDERED: Naloxone 0.4 mg VIAL 0.4 mg/ml 1 ml VIAL IV PRN (12:08)
[2022-12-05] MEDS ORDERED: ROPIVACAINE 5 MG/ML 30 ML BTL (0.5%) ONE ×2 (12:57→12:58)
[2022-12-05] MEDS ORDERED: Ondansetron 4 mg VIAL 2 MG/ML 2 ml VIAL ONE (13:45)
[2022-12-05] MEDS ORDERED: HYDROmorphone 0.5 MG/0.5 ML SYRINGE ONE (13:49)
[2022-12-05] MEDS ORDERED: Morphine 2 MG/ML SYRINGE IV PRN (14:15)
[2022-12-05] MEDS ORDERED: Ondansetron ODT 4 mg TAB 4 MG TAB PO PRN (14:15)
[2022-12-05] MEDS ORDERED: Lactulose 30 ml UDC PO PRN (14:15)
[2022-12-05] MEDS ORDERED: Magnesium Hydroxide LIQ 30 ML UDC PO PRN (14:15)
[2022-12-05] MEDS ORDERED: Ondansetron 4 mg VIAL 2 MG/ML 2 ml VIAL IV PRN (14:15)
[2022-12-05] MEDS: fentaNYL 100 mcg/2 ml 50 MCG/ML VIAL IV PRN ×2 (16:11→16:28)
[2022-12-05] MEDS: Lactated Ringers 1000 ml BAG 1,000 ML IV SCH (18:06)
[2022-12-05] MEDS: Magnesium Hydroxide LIQ 30 ML UDC PO SCH (21:27)
[2022-12-05] MEDS ORDERED: ceFAZolin 1 GM ADVAN 1 GM in NS 0.9% 50 ML 50 ML IVPB SCH (21:30)
[2022-12-05] MEDS: ceFAZolin 1 GM ADVAN 1 GM in NS 0.9% 50 ML 50 ML IVPB SCH (23:39)
[2022-12-06 02:39] LABS: ABS Lymphocytes 0.8 10^3/uL (1.0-4.8); ABS Monocytes 1.1 10^3/uL (0.0-1.1); ABS Neutrophils 11.3 10^3/uL (1.5-7.6); Hemoglobin 9.7 g/dL (13.2-16.3); Lymphocyte % 5.8 %; Mean Corpuscular Hemoglobin 28.6 pg (27-33); Mean Corpuscular Hgb Conc 33.4 g/dL (31-36); Mean Corpuscular Volume 85.7 fL (80-97); Mean Platelet Volume 7.3 fL (7.5-11.2); Platelet Count 217 10^3/uL (150-450); Red Blood Count 3.39 10^6/uL (4.06-5.63); Red Cell Distribution Width 16.8 % (12-17); White Blood Count 13.2 10^3/uL (3.6-10.2)
[2022-12-06] MEDS ORDERED: Lactated Ringers 1000 ml BAG 1,000 ML IV ONE (02:46)
[2022-12-06 03:28] LABS: Albumin 3.4 g/dL (3.2-5.2); Albumin/Globulin Ratio 1.5 (1-3); Calcium 8.3 mg/dL (8.6-10.3); Creatinine, Serum 1.13 mg/dL (0.67-1.17); Globulin 2.3 g/dL (2-4); Potassium 4.5 mmol/L (3.5-5.0); Total Bilirubin 0.7 mg/dL (0.2-1.0); Total Protein 5.7 g/dL (6.4-8.9); eGFR CKD-EPI 66.9 (>60)
[2022-12-06] MEDS: Lactated Ringers 1000 ml BAG 1,000 ML IV SCH ×2 (05:00→15:26)
[2022-12-06 06:01] LABS: Hematocrit 27.7 % (38-53); Mean Platelet Volume 7.8 fL (7.5-11.2); Platelet Count 179 10^3/uL (150-450)
[2022-12-06 06:18] LABS: Calcium 7.9 mg/dL (8.6-10.3); Creatinine, Serum 1.07 mg/dL (0.67-1.17); Potassium 4.3 mmol/L (3.5-5.0); eGFR CKD-EPI 71.5 (>60)
[2022-12-06] MEDS: ceFAZolin 1 GM ADVAN 1 GM in NS 0.9% 50 ML 50 ML IVPB SCH ×2 (08:30→15:29)
[2022-12-06] MEDS: Vitamin THERAPEUTIC TAB PO SCH (08:33)
[2022-12-06] MEDS: Magnesium Hydroxide LIQ 30 ML UDC PO SCH ×2 (08:34→20:35)
[2022-12-07 07:38] LABS: Hematocrit 27.4 % (38-53); Hemoglobin 9.1 g/dL (13.2-16.3); Mean Platelet Volume 7.4 fL (7.5-11.2); Platelet Count 187 10^3/uL (150-450)
[2022-12-07] MEDS: Magnesium Hydroxide LIQ 30 ML UDC PO SCH (08:17)
[2022-12-07] MEDS: Vitamin THERAPEUTIC TAB PO SCH (08:17)
[2022-12-07 14:44] VITALS: BP 136/80
== END 2022-12-07 16:00 | disposition home or self-care (01) ==
LOC: AA 10:30 → INTOOBSV 10:30 → SSU 17:42
PROVIDERS: ADMIT Orthopaedic Surgery Adult Reconstructive Orthopaedic Surgery; ATTEND Orthopaedic Surgery Adult Reconstructive Orthopaedic Surgery